=== PATIENT | female | born 1945 | race American Indian/Alaskan Native ===

== ENCOUNTER 2017-03-17 13:32 | Emergency (ER) | payer MEDICARE ==
[2017-03-17 13:56] VITALS: TEMP 98
--- NOTE | 2017-03-17 14:13 | C.PDOC ---
Time Seen by Provider: 03/17/17 14:07 Chief Complaint (Nursing): High Blood Pressure Past Medical History Vital Signs: Last Vital Signs Temp 98.0 F 03/17/17 13:45 Pulse 53 L 03/17/17 13:45 Resp 18 03/17/17 13:45 BP 203/77 H 03/17/17 13:45 Pulse Ox 98 03/17/17 13:45 - Medical History PMH: Anemia, Bronchitis (seasonal ), Cardia Arrhythmia (atrial fibrillation), HTN Denies: Chronic Kidney Disease - Social History Hx Alcohol Use: No Hx Substance Use: No ED Course And Treatment O2 Sat by Pulse Oximetry: 98 Disposition - Disposition
[2017-03-17] MEDS ORDERED: Labetalol 25mg/5ml Syringe IVP STA (14:15)
--- NOTE | 2017-03-17 14:15 | C.PDOC ---
History Of Present Illness 71 year old female, with past medical history of hypertension, presents to the ED via BLS for evaluation of elevated blood pressure associated with headache, nausea, and vomiting since this morning. Patient was found to have blood pressure of 230/101 and heart rate of 60bpm while en route to ED. Patient notes she has been compliant with her hypertension medications, but notes such headaches are normally associated with elevations in her blood pressure ( baseline pressure is around 150/90). Patient reports she took Motrin at around 0700 without significant relief. She denies fever, chills, vision change, dizziness, chest pain, abdominal pain, or extremity numbness/weakness. Time Seen by Provider: 03/17/17 14:07 Chief Complaint (Nursing): High Blood Pressure History Per: Patient History/Exam Limitations: no limitations Onset/Duration Of Symptoms: Hrs Current Symptoms Are (Timing): Still Present Associated Symptoms: Headache. denies: Chest Pain, Blurred Vision, Focal Weakness Exacerbating Factor(s): Pos: None Neg: Recently Missed Doses Of Medication, Recent Change In Medication Additional History Per: Patient Past Medical History Reviewed: Historical Data, Nursing Documentation, Vital Signs Vital Signs: Last Vital Signs Temp 98.0 F 03/17/17 13:45 Pulse 52 L 03/17/17 14:35 Resp 20 03/17/17 14:35 BP 175/82 H 03/17/17 14:35 Pulse Ox 98 03/17/17 14:44 - Medical History PMH: Anemia, Bronchitis (seasonal ), Cardia Arrhythmia (atrial fibrillation), HTN Surgical History: No Surg Hx Family History: States: Unknown Family Hx - Social History Hx Alcohol Use: No Hx Substance Use: No Review Of Systems Constitutional: Negative for: Fever, Chills Eyes: Negative for: Vision Change Cardiovascular: Negative for: Chest Pain Gastrointestinal: Positive for: Nausea, Vomiting. Negative for: Abdominal Pain , Diarrhea, Constipation Neurological: Positive for: Headache. Negative for: Weakness, Numbness, Dizziness Physical Exam - Physical Exam Appears: Non-toxic, No Acute Distress, Other (actively vomiting (non-bloody, non -bilious)) Skin: Normal Color, Warm, Dry Head: Atraumatic, Normacephalic Eye(s): bilateral: Normal Inspection Oral Mucosa: Moist Neck: Supple Chest: Symmetrical, No Deformity, No Tenderness Cardiovascular: Rhythm Regular, No Murmur Respiratory: Normal Breath Sounds, No Rales, No Rhonchi, No Wheezing Gastrointestinal/Abdominal: Soft, No Tenderness, No Guarding, No Rebound Extremity: Normal ROM, Capillary Refill (less than 2 seconds ) Neurological/Psych: Oriented x3, Normal Speech, Normal Cognition Gait: Steady ED Course And Treatment - Laboratory Results Result Diagrams: 03/17/17 14:35 O2 Sat by Pulse Oximetry: 98 (on RA) Pulse Ox Interpretation: Normal Progress Note: CT Head, EKG, Bloodwork ordered and reviewed. Trandate IVP and Zofran IVP administered. Disposition - Disposition Forms: [employer] (Croatian) - Scribe Statement The provider has reviewed the documentation as recorded by the Scribe (Poppy Kamara) Provider Attestation: All medical record entries made by the Scribe were at my direction and personally dictated by me. I have reviewed the chart and agree that the record accurately reflects my personal performance of the history, physical exam, medical decision making, and the department course for this patient. I have also personally directed, reviewed, and agree with the discharge instructions and disposition.
--- NOTE | 2017-03-17 14:17 | C.PDOC ---
History Of Present Illness 71 Y/O FEMALE, PMHx OF HTN, BROUGHT IN BY EMS WITH C/O HEADACHE ASSOCIATED WITH NAUSEA AND VOMITING SINCE THIS MORNING. PATIENT ALSO REPORTS ELEVATED BLOOD PRESSURE, AND STATES SHE HAS HAD SIMILAR SYMPTOMS IN THE PAST WHEN BP IS HIGH. PT NOTES SHE TOOK MOTRIN THIS MORNING AT 0700 WITH NO RELIEF; ALSO REPORTS TAKING HER REGULAR BP MEDICATION THIS MORNING. OTHERWISE DENIES FEVER, VISUAL CHANGES, CHEST PAIN, PALPITATIONS, SOB, ABDOMINAL PAIN, DIARRHEA, NEW EXTREMITY WEAKNESS OR NUMBNESS. PT ALSO C/O ASSOCIATED DECREASED APPETITE AND GENERALIZED WEAKNESS OVER LAST FEW DAYS. STATES BP TYPICALLY 150-60/80-90. Time Seen by Provider: 03/17/17 14:07 Chief Complaint (Nursing): High Blood Pressure History Per: Patient History/Exam Limitations: no limitations Onset/Duration Of Symptoms: Days Current Symptoms Are (Timing): Still Present Associated Symptoms: Headache. denies: Chest Pain, Dyspnea, Dizziness, Blurred Vision, Focal Weakness Recent travel outside of the [place]: No Past Medical History Reviewed: Historical Data, Nursing Documentation, Vital Signs Vital Signs: Last Vital Signs Temp 98.0 F 03/17/17 13:45 Pulse 74 03/17/17 15:43 Resp 20 03/17/17 15:43 BP 158/66 H 03/17/17 15:43 Pulse Ox 99 03/17/17 15:43 - Medical History PMH: Anemia, Bronchitis (seasonal ), Cardia Arrhythmia (atrial fibrillation), HTN Family History: States: Unknown Family Hx - Social History Hx Alcohol Use: No Hx Substance Use: No Review Of Systems Except As Marked, All Systems Reviewed And Found Negative. Constitutional: Positive for: Weakness. Negative for: Fever, Chills Cardiovascular: Negative for: Chest Pain, Palpitations Respiratory: Negative for: Cough, Shortness of Breath, Wheezing Gastrointestinal: Positive for: Nausea, Vomiting. Negative for: Abdominal Pain , Diarrhea Skin: Negative for: Rash Neurological: Positive for: Headache. Negative for: Weakness, Numbness, Dizziness Physical Exam - Physical Exam Appears: Non-toxic, Other (UNCOMFORTABLE, ACTIVELY VOMITING - NONBLOODY, NONBILIOUS. BP AT TIME OF EVALUATION: 175/82) Skin: Normal Color, Warm, Dry Head: Atraumatic, Normacephalic Oral Mucosa: Moist Chest: Symmetrical Cardiovascular: Rhythm Regular Respiratory: Normal Breath Sounds, No Accessory Muscle Use, No Rales, No Rhonchi , No Wheezing Gastrointestinal/Abdominal: Soft, No Tenderness, No Distention, No Guarding, No Rebound, Other (OBESE) Back: Normal Inspection Extremity: Normal ROM, Capillary Refill (< 2 SEC.) Neurological/Psych: Oriented x3, Normal Speech, Normal Cognition ED Course And Treatment - Laboratory Results Result Diagrams: 03/17/17 14:35 03/17/17 14:35 O2 Sat by Pulse Oximetry: 98 (RA) Pulse Ox Interpretation: Normal Progress - Re-Evaluation Re-evaluation Note: 03/17/17 14:14 CT HEAD, EKG, BLOODWORK ORDERED. TREATED WITH LABETALOL AND ZOFRAN. 03/17/17 15:44 d/w dr hunter PMD: HO UNCONTROLL HTN, KNOWN NONCOMPLIANT. SEEN @ [facility] [place] [facility] [place], ELEVATED HTN. HO EATING HIGH SALT DIET. VALSARTAN 320 QD, HCTZ 25 QD, ISOSORBIDE MONONITRATE 30. PT EVALUATED AT HER HOUSE BY PMD TODAY. AWARE OF ER FINDINGS, AGREES W DC PLAN PT APPEARS COMFORTABLE, SX RESOLVED. ADVISED NEED TO TAKE MEDS PRESCRIBED. FU PMD - Data Reviewed Data Reviewed: Lab, Diagnostic imaging - Continuity of Care Discussed patient case with:: Patient, PMD Disposition Counseled Patient/Family Regarding: Studies Performed, Diagnosis, Need For Followup - Disposition Referrals: YOUR,PMD [Other] Disposition: HOME/ ROUTINE Disposition Time: 15:57 Condition: IMPROVED Instructions: Hypertensive Crisis (ED) Forms: [facility] (Pashto) - Clinical Impression Clinical Impression: Hypertensive urgency, Noncompliance with medications, Headache, Vomiting - Scribe Statement The provider has reviewed the documentation as recorded by the Scribe SM All medical record entries made by the Scribe were at my direction and personally dictated by me. I have reviewed the chart and agree that the record accurately reflects my personal performance of the history, physical exam, medical decision making, and the department course for this patient. I have also personally directed, reviewed, and agree with the discharge instructions and disposition.
[2017-03-17] MEDS ORDERED: Labetalol 25mg/5ml Syringe ONE (14:24)
[2017-03-17 14:39] VITALS: RESP 20
[2017-03-17 14:39] LABS: BASO # 0.1 K/uL (0.0-0.2); BASO % 0.7 % (0.0-2.0); EOS % 0.3 % (0.0-4.0); HEMATOCRIT 38.1 % (34.0-47.0); LYMPH # 1.1 K/uL (1.0-4.3); LYMPH % 10.2 % (20.0-40.0); MEAN CELL VOLUME 79.9 fL (81.0-99.0); MEAN CORPUSCULAR HEMOGLOBIN 26.9 pg (27.0-31.0); MEAN CORPUSCULAR HGB CONC 33.7 g/dL (33.0-37.0); MEAN PLATELET VOLUME 8.7 fL (7.2-11.7); MONO # 0.6 K/uL (0.0-0.8); RED CELL DISTRIBUTION WIDTH 14.1 % (11.5-14.5); WHITE BLOOD COUNT 10.6 K/uL (4.8-10.8)
[2017-03-17 14:49] LABS: CHLORIDE 91 mmol/L (98-107)
[2017-03-17 14:50] LABS: POTASSIUM 3.1 mmol/L (3.6-5.2); SODIUM 129 mmol/L (132-148)
[2017-03-17 14:52] LABS: ALB/GLOB RATIO 1.1 (1.0-2.1); CARBON DIOXIDE 24 mmol/L (22-30); GFR AFRICAN-AMERICAN > 60
[2017-03-17 14:53] LABS: ALKALINE PHOSPHATASE 96 U/L (38-126); ALT/SGPT 17 U/L (9-52); AST/SGOT 21 U/L (14-36); BLOOD UREA NITROGEN 11 mg/dL (7-17); CALCIUM 9.9 mg/dl (8.6-10.4); GLUCOSE,RANDOM 129 mg/dL (65-105)
--- NOTE | 2017-03-17 15:32 | CT ---
PROCEDURE: CT HEAD WITHOUT CONTRAST. HISTORY: Headache COMPARISON: None available. TECHNIQUE: Axial computed tomography images were obtained through the head/brain without intravenous contrast. Radiation dose: Total exam DLP = 870.66 MGy-cm. This CT exam was performed using one or more of the following dose reduction techniques: Automated exposure control, adjustment of the mA and/or kV according to patient size, and/or use of iterative reconstruction technique. FINDINGS: HEMORRHAGE: No intracranial hemorrhage. BRAIN: No mass effect or edema. No atrophy or chronic microvascular ischemic changes.Please note that MRI with diffusion imaging is more sensitive in the detection of acute ischemic event. VENTRICLES: No hydrocephalus. CALVARIUM: Unremarkable. PARANASAL SINUSES: Unremarkable as visualized. No significant inflammatory changes. MASTOID AIR CELLS: Unremarkable as visualized. No inflammatory changes. OTHER FINDINGS: 5 x 1.2 cm fat-density soft tissue lesion, right scalp, presumably lipoma IMPRESSION: Right scalp fat density soft tissue lesion consistent with a lipoma. No acute intracranial pathology identified.
[2017-03-17 15:44] VITALS: BP 158/66; PULSE 74
[2017-03-17 15:57] VITALS: O2SAT 98
--- NOTE | 2017-03-19 10:50 | CARD ---
APPROVED REPORT EKG Measurement Heart [id number] <Conclusion> Sinus bradycardia with 1st degree AV block Otherwise normal ECG
== END 2017-03-17 16:10 | disposition home or self-care (01) ==
LOC: C.ER 13:32
DX: I16.0 Hypertensive urgency (principal); Z91.14 Patient's other noncompliance with medication regimen; R51 Headache; R11.10 Vomiting, unspecified
CPT/HCPCS: 70450; 80053; 85025; 93005; 96374; 96375; 99284; J1885; J2270; J2405

== ENCOUNTER 2017-03-20 16:03 | Inpatient (IN) | payer MEDICARE ==
[2017-03-20] MEDS ORDERED: Lactated Ringer's 1,000 ML IVB ONE (16:41)
--- NOTE | 2017-03-20 16:52 | RAD ---
PROCEDURE: CHEST RADIOGRAPH, 1 VIEW. Portable study 16:45. HISTORY: SOB COMPARISON: None available. FINDINGS: LUNGS: Clear. PLEURA: No pneumothorax or pleural fluid seen. CARDIOVASCULAR: No radiographic findings to suggest acute or significant cardiovascular disease. OSSEOUS STRUCTURES: No significant abnormalities. VISUALIZED UPPER ABDOMEN: Normal. OTHER FINDINGS: None. IMPRESSION: No active disease. Please note: No preliminary report/ innterpretation of this examination provided by emergency department personnel.
[2017-03-20 16:58] LABS: BASO # 0.1 K/uL (0.0-0.2); BASO % 1.1 % (0.0-2.0); EOS # 0.1 K/uL (0.0-0.7); EOS % 0.9 % (0.0-4.0); HEMATOCRIT 43.5 % (34.0-47.0); LYMPH # 2.1 K/uL (1.0-4.3); LYMPH % 18.3 % (20.0-40.0); MEAN CELL VOLUME 79.5 fL (81.0-99.0); MEAN CORPUSCULAR HEMOGLOBIN 26.6 pg (27.0-31.0); MEAN CORPUSCULAR HGB CONC 33.4 g/dL (33.0-37.0); MEAN PLATELET VOLUME 9.2 fL (7.2-11.7); MONO # 1.5 K/uL (0.0-0.8); MONO % 12.5 % (0.0-10.0); RED CELL DISTRIBUTION WIDTH 14.5 % (11.5-14.5); WHITE BLOOD COUNT 11.7 K/uL (4.8-10.8)
[2017-03-20 17:30] LABS: POTASSIUM 3.2 mmol/L (3.6-5.2)
[2017-03-20 17:33] LABS: ALB/GLOB RATIO 1.1 (1.0-2.1); BILIRUBIN,TOTAL 0.8 mg/dL (0.2-1.3); TOTAL PROTEIN 7.9 g/dL (6.3-8.3)
[2017-03-20 17:34] LABS: MAGNESIUM 1.8 mg/dL (1.6-2.3)
[2017-03-20 17:44] LABS: TROPONIN I 0.07 ng/mL (0.00-0.120)
--- NOTE | 2017-03-20 18:20 | C.PDOC ---
History Of Present Illness Pt was found by EMS to be hypotensive and tachycardic. Time Seen by Provider: 03/20/17 16:22 Chief Complaint (Nursing): Dizziness/Lightheaded History Per: Patient, EMS Onset/Duration Of Symptoms: Hrs (today) Current Symptoms Are (Timing): Still Present Associated Symptoms Preceding Syncopal Episode: Other (SOB) Seizure Or Post-ictal Symptoms: None Fall Associated With With Symptoms: No Severity: Moderate Additional History Per: Prior Records - Symptoms Of CVA Recent Head Trauma: No Past Medical History Reviewed: Historical Data, Nursing Documentation, Vital Signs Vital Signs: Last Vital Signs Temp 97.2 F L 03/20/17 16:29 Pulse 92 H 03/20/17 17:45 Resp 18 03/20/17 17:45 BP 127/71 03/20/17 17:45 Pulse Ox 99 03/20/17 17:45 - Medical History PMH: Anemia, Bronchitis (seasonal ), Cardia Arrhythmia (atrial fibrillation), HTN Family History: States: Unknown Family Hx - Social History Hx Alcohol Use: No Hx Substance Use: No Review Of Systems Except As Marked, All Systems Reviewed And Found Negative. Constitutional: Negative for: Fever Cardiovascular: Positive for: Palpitations, Light Headedness. Negative for: Chest Pain Respiratory: Positive for: Shortness of Breath. Negative for: Hemoptysis Gastrointestinal: Negative for: Vomiting, Diarrhea Musculoskeletal: Negative for: Neck Pain Skin: Negative for: Rash Neurological: Positive for: Headache. Negative for: Weakness, Numbness Physical Exam - Physical Exam Appears: In Acute Distress (mild) Skin: Diaphoretic Head: Atraumatic, Normacephalic Eye(s): bilateral: PERRL, EOMI Neck: Normal ROM, Supple Cardiovascular: Rhythm Irregular Respiratory: Normal Breath Sounds, No Accessory Muscle Use Gastrointestinal/Abdominal: Soft, No Tenderness Extremity: Normal ROM, No Calf Tenderness Neurological/Psych: Oriented x3, Normal Motor, Normal Sensation ED Course And Treatment - Laboratory Results Result Diagrams: 03/20/17 16:48 03/20/17 16:48 Lab Interpretation: Abnormal Interpretation Of Abnormal: Worsening of BUN/Cr from 4 days ago. ECG: Interpreted By Me, Viewed By Me ECG Rhythm: Atrial Fibrillation, Nonspecific Changes ECG Interpretation: Abnormal Rate From EC O2 Sat by Pulse Oximetry: 99 Pulse Ox Interpretation: Normal - Radiology CXR: Viewed By Me, Read By Radiologist CXR Interpretation: Yes: No Acute Disease Progress - Interventions Interventions:: Observation, Intravenous fluid, Oxygen - Data Reviewed Data Reviewed: Lab, Diagnostic imaging, EKG, Old records - Patient Status Patient status: Partially improved - Continuity of Care Discussed patient case with:: Patient, ED Nurse, On-call PMD-pt unassigned - Patient Plan Patient Plan: Admission, Telemetry Disposition Discussed With Dr.: Katrin Grant Comment: He accepted pt on his service. Doctor Will See Patient In The: Hospital Counseled Patient/Family Regarding: Studies Performed, Diagnosis - Disposition Disposition: HOSPITALIZED Disposition Time: 18:23 Condition: GUARDED - Clinical Impression Clinical Impression: Transient hypotension, Atrial fibrillation with rapid ventricular response, Dehydration
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
[2017-03-21] MEDS: Enoxaparin 40 mg Syringe SC SCH ×3 (00:18→17:52)
[2017-03-21 00:34] VITALS: RESP 20
[2017-03-21] MEDS: Potassium Chloride 20 MEQ in Sodium Chloride 0.45% 1,000 ML IV SCH ×2 (02:06→23:56)
--- NOTE | 2017-03-21 13:25 | CP.PCM.PN ---
Subjective - Date & Time of Evaluation Date of Evaluation: 03/21/17 Time of Evaluation: 13:24 - Subjective Subjective: CHIEF COMPLAINTS TODAY : NO SP. COMPLAINTS ROS. HEENT : N. Resp : No cough, wheezing ,pleuritic CP ,or hemoptysis Cardio : No anginal CP, PND, orthopnea, palpitation GI : No abd.pain, n/v ,diarrhea or GI bleeding . 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 Musculoskel : No joint swelling , Derm : No rash Psych : Normal affect. Ext : No swelling ,calf pain PE. Pt. is alert awake in no distress. V.S As noted in the chart Head ,ear nose,throat and eyes : Normal. Neck : Supple with normal carotids. Lungs: Clear air entry. Heart : S1 & S2 normal with S4. No murmur. Abd : Soft non tender with normal bowel sounds. Neuro : Moves all ext. with no localized deficit. Ext : No edema with intact pulses.Non tender calves Derm : No rashes or decubitus ulcer. LABS/RADIOLOGY: ALL TNI ARE POS ASSESSMENT/PLAN : CARDIAC W/P CHECK BNP Objective - Vital Signs/Intake and Output Vital Signs (last 24 hours): Temp Pulse Resp BP Pulse Ox 97.7 F 98 H 20 130/73 98 03/21/17 07:35 03/21/17 07:40 03/21/17 07:35 03/21/17 07:35 03/21/17 07:35 - Medications Medications: Current Medications Enoxaparin Sodium (Lovenox) 40 mg SC BID [facility] Last Admin: 03/21/17 09:20 Dose: 40 mg Potassium Chloride 20 meq/ (Sodium Chloride) 1,010 mls @ 100 mls/hr IV .Q10H6M [facility] Last Admin: 03/21/17 02:06 Dose: 100 mls/hr Losartan Potassium (Cozaar) 100 mg PO DAILY [facility] Last Admin: 03/21/17 09:20 Dose: 100 mg Pneumococcal Polyvalent Vaccine (Pneumovax 23 Vaccine) 0.5 ml IM .ONCE ONE Stop: 03/23/17 14:01 - Labs Labs: 03/20/17 16:48 03/20/17 16:48 PT 11.0 SECONDS (9.7-12.2) 03/20/17 16:48 INR 1.0 03/20/17 16:48 APTT 28 SECONDS (21-34) 03/20/17 16:48
[2017-03-21 14:21] LABS: CHLORIDE 92 mmol/L (98-107); POTASSIUM 3.3 mmol/L (3.6-5.2); SODIUM 131 mmol/L (132-148)
[2017-03-21 14:23] LABS: GFR AFRICAN-AMERICAN > 60
[2017-03-21 14:24] LABS: ALB/GLOB RATIO 1.2 (1.0-2.1); ALKALINE PHOSPHATASE 78 U/L (38-126); ALT/SGPT 23 U/L (9-52); AST/SGOT 27 U/L (14-36); BILIRUBIN,TOTAL 1.1 mg/dL (0.2-1.3); BLOOD UREA NITROGEN 19 mg/dL (7-17); CALCIUM 9.5 mg/dl (8.6-10.4); CARBON DIOXIDE 28 mmol/L (22-30); GLUCOSE,RANDOM 116 mg/dL (65-105); TOTAL PROTEIN 7.2 g/dL (6.3-8.3)
--- NOTE | 2017-03-21 21:36 | CARD ---
APPROVED REPORT EKG Measurement Heart [id number] <Conclusion> Atrial fibrillation with rapid ventricular response ST & T wave abnormality, consider inferior ischemia Abnormal ECG
[2017-03-22 07:35] LABS: CHLORIDE 96 mmol/L (98-107)
[2017-03-22 07:36] LABS: POTASSIUM 3.6 mmol/L (3.6-5.2); SODIUM 134 mmol/L (132-148)
[2017-03-22 07:38] LABS: CARBON DIOXIDE 25 mmol/L (22-30); GFR AFRICAN-AMERICAN > 60
[2017-03-22 07:39] LABS: ALB/GLOB RATIO 1.1 (1.0-2.1); ALKALINE PHOSPHATASE 80 U/L (38-126); ALT/SGPT 20 U/L (9-52); AST/SGOT 19 U/L (14-36); BLOOD UREA NITROGEN 14 mg/dL (7-17); CALCIUM 9.5 mg/dl (8.6-10.4); GLUCOSE,RANDOM 100 mg/dL (65-105); TOTAL PROTEIN 7.4 g/dL (6.3-8.3)
[2017-03-22] MEDS: Potassium Chloride 20 MEQ in Sodium Chloride 0.45% 1,000 ML IV SCH ×3 (09:00→18:10)
[2017-03-22] MEDS: Enoxaparin 40 mg Syringe SC SCH ×2 (09:56→18:10)
--- NOTE | 2017-03-22 13:49 | CP.PCM.PN ---
Subjective - Date & Time of Evaluation Date of Evaluation: 03/22/17 Time of Evaluation: 13:48 - Subjective Subjective: CHIEF COMPLAINTS TODAY : FATIGUE AND TIRED ROS. HEENT : N. Resp : No cough, wheezing ,pleuritic CP ,or hemoptysis Cardio : No anginal CP, PND, orthopnea, palpitation GI : No abd.pain, n/v ,diarrhea or GI bleeding . 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 Musculoskel : No joint swelling , Derm : No rash Psych : Normal affect. Ext : No swelling ,calf pain PE. Pt. is alert awake in no distress. V.S As noted in the chart Head ,ear nose,throat and eyes : Normal. Neck : Supple with normal carotids. Lungs: Clear air entry. Heart : S1 & S2 normal with S4. No murmur. Abd : Soft non tender with normal bowel sounds. Neuro : Moves all ext. with no localized deficit. Ext : No edema with intact pulses.Non tender calves Derm : No rashes or decubitus ulcer. LABS/RADIOLOGY: ALL TNI ARE POS ASSESSMENT/PLAN : CHECK ECHO WILL D/W PT FOR CARDIAC CATH Objective - Vital Signs/Intake and Output Vital Signs (last 24 hours): Temp Pulse Resp BP Pulse Ox 97.4 F L 71 20 151/94 H 97 03/22/17 08:18 03/22/17 08:18 03/22/17 08:18 03/22/17 08:18 03/22/17 08:18 Intake and Output: 03/22/17 03/22/17 11:59 23:59 Intake Total 950 Balance 950 - Medications Medications: Current Medications Enoxaparin Sodium (Lovenox) 40 mg SC BID [facility] Last Admin: 03/22/17 09:56 Dose: 40 mg Potassium Chloride 20 meq/ (Sodium Chloride) 1,010 mls @ 100 mls/hr IV .Q10H6M [facility] Last Admin: 03/22/17 12:26 Dose: Not Given Losartan Potassium (Cozaar) 100 mg PO DAILY [facility] Last Admin: 03/22/17 09:56 Dose: 100 mg Pneumococcal Polyvalent Vaccine (Pneumovax 23 Vaccine) 0.5 ml IM .ONCE ONE Stop: 03/23/17 14:01 Propranolol HCl (Inderal) 10 mg PO Q6H [facility] Last Admin: 03/22/17 08:00 Dose: 10 mg - Labs Labs: 03/20/17 16:48 03/22/17 07:10 PT 11.0 SECONDS (9.7-12.2) 03/20/17 16:48 INR 1.0 03/20/17 16:48 APTT 28 SECONDS (21-34) 03/20/17 16:48
--- NOTE | 2017-03-22 16:30 | CP.PCM.PN ---
Subjective - Date & Time of Evaluation Date of Evaluation: 03/22/17 Time of Evaluation: 16:30 - Subjective Subjective: pt seen by dr. alvarez during rounds. npo after light breakfast tomorrow ordered and per dr. alvarez pt will have card cath done tomorrow afternoon around 3pm. no further orders. Objective - Vital Signs/Intake and Output Vital Signs (last 24 hours): Temp Pulse Resp BP Pulse Ox 97.4 F L 71 20 151/94 H 97 03/22/17 08:18 03/22/17 08:18 03/22/17 08:18 03/22/17 08:18 03/22/17 08:18 Intake and Output: 03/22/17 03/22/17 06:59 18:59 Intake Total 2100 Balance 2100 - Medications Medications: Current Medications Enoxaparin Sodium (Lovenox) 40 mg SC BID [facility] Last Admin: 03/22/17 09:56 Dose: 40 mg Potassium Chloride 20 meq/ (Sodium Chloride) 1,010 mls @ 100 mls/hr IV .Q10H6M [facility] Last Admin: 03/22/17 12:26 Dose: Not Given Losartan Potassium (Cozaar) 100 mg PO DAILY [facility] Last Admin: 03/22/17 09:56 Dose: 100 mg Pneumococcal Polyvalent Vaccine (Pneumovax 23 Vaccine) 0.5 ml IM .ONCE ONE Stop: 03/23/17 14:01 Propranolol HCl (Inderal) 10 mg PO Q6H [facility] Last Admin: 03/22/17 13:50 Dose: 10 mg - Labs Labs: 03/20/17 16:48 03/22/17 07:10 PT 11.0 SECONDS (9.7-12.2) 03/20/17 16:48 INR 1.0 03/20/17 16:48 APTT 28 SECONDS (21-34) 03/20/17 16:48
--- NOTE | 2017-03-22 19:41 | CARD ---
APPROVED REPORT EXAM: Two-dimensional and M-mode echocardiogram with Doppler and color Doppler. Other Information Quality : GoodRhythm : NSR INDICATION Atrial Fibrillation Cardiac Disease: CAD RISK FACTORS Hypertension M-Mode DIMENSIONS RVDd1.91 (2.1-3.2cm)Left Atrium (MM)3.54 (2.5-4.0cm) IVSd1.67 (0.7-1.1cm)Aortic Root2.92 (2.2-3.7cm) LVDd3.61 (4.0-5.6cm)Aortic Cusp Exc.1.84 (1.5-2.0cm) PWd1.67 (0.7-1.1cm)FS (%) 23 % LVDs2.78 (2.0-3.8cm)LVEF (%)55 (>50%) Aortic Valve AoV Peak Yqjnwfwh968.5cm/Elizabeth Peak GR.8mmHg Mitral Valve MV E Emhmqcgm79.4cm/sMV A Rofsbpso28.5cm/sE/A ratio2.1 TDI E/Lateral E'0.0E/Medial E'0.0 Tricuspid Valve TR Peak Ighaxign095dv/sTR Peak Gr.[id number] LEFT VENTRICLE The left ventricle is normal size. There is moderate concentric left ventricular hypertrophy. Left ventricle systolic function is borderline. The Ejection Fraction is 50-55%. There is normal LV segmental wall motion. The left ventricular diastolic function is normal. RIGHT VENTRICLE The right ventricle is normal size. There is normal right ventricular wall thickness. The right ventricular systolic function is normal. ATRIA The left atrium size is normal. The right atrium size is normal. The interatrial septum is intact with no evidence for an atrial septal defect. AORTIC VALVE The aortic valve is normal in structure. No aortic regurgitation is present. There is no aortic valvular stenosis. MITRAL VALVE The mitral valve is normal in structure. There is no evidence of mitral valve prolapse. There is no mitral valve stenosis. There is no mitral valve regurgitation noted. TRICUSPID VALVE The tricuspid valve is normal in structure. There is trace tricuspid regurgitation. Right ventricular systolic pressure is estimated at less than 30 mmHg. There is no pulmonary hypertension. PULMONIC VALVE The pulmonic valve is not well visualized. There is no pulmonic valvular regurgitation. GREAT VESSELS The aortic root is normal in size. PERICARDIAL EFFUSION There is no significant pericardial effusion. <Conclusion> Left ventricle systolic function is borderline. The Ejection Fraction is 50-55%. Hypertensive heart disease. No aortic regurgitation is present. There is no mitral valve regurgitation noted. There is trace tricuspid regurgitation. There is no pulmonary hypertension. There is no pulmonic valvular regurgitation.
[2017-03-23] MEDS: Potassium Chloride 20 MEQ in Sodium Chloride 0.45% 1,000 ML IV SCH (04:00)
[2017-03-23 08:31] VITALS: BP 140/75; PULSE 56; TEMP 97.9; O2SAT 98
[2017-03-23] MEDS: Enoxaparin 40 mg Syringe SC SCH (10:00)
--- NOTE | 2017-03-23 13:25 | CP.PCM.PN ---
Subjective - Date & Time of Evaluation Date of Evaluation: 03/23/17 Time of Evaluation: 13:23 - Subjective Subjective: FOR CARDIAC CATH TODAY PT HAD CARDIAC CATH FEW YEARS AGO WAS TOLD NORMAL PT. IS FULLY AWARE OF THE PROCEDURE AND RISKS PT HAS AGREED FOR CATH Objective - Vital Signs/Intake and Output Vital Signs (last 24 hours): Temp Pulse Resp BP Pulse Ox 97.9 F 56 L 20 140/75 98 03/23/17 08:30 03/23/17 08:30 03/23/17 08:30 03/23/17 08:30 03/23/17 08:30 - Medications Medications: Current Medications Enoxaparin Sodium (Lovenox) 40 mg SC BID [facility] Last Admin: 03/23/17 10:00 Dose: Not Given Potassium Chloride 20 meq/ (Sodium Chloride) 1,010 mls @ 100 mls/hr IV .Q10H6M [facility] Last Admin: 03/23/17 04:00 Dose: 100 mls/hr Losartan Potassium (Cozaar) 100 mg PO DAILY [facility] Last Admin: 03/23/17 09:00 Dose: 100 mg Pneumococcal Polyvalent Vaccine (Pneumovax 23 Vaccine) 0.5 ml IM .ONCE ONE Stop: 03/23/17 14:01 Propranolol HCl (Inderal) 10 mg PO Q6H [facility] Last Admin: 03/23/17 08:10 Dose: 10 mg - Labs Labs: 03/20/17 16:48 03/22/17 07:10 PT 11.0 SECONDS (9.7-12.2) 03/20/17 16:48 INR 1.0 03/20/17 16:48 APTT 28 SECONDS (21-34) 03/20/17 16:48
[2017-03-23] MEDS ORDERED: Pneumococcal 23-Valent Vaccine IM ONE (14:00)
[2017-03-23] MEDS ORDERED: Influenza Vaccine 60 mcg/0.5 mL SYR (4YR UP) IM ONE (14:00)
--- NOTE | 2017-03-23 22:57 | CARD ---
APPROVED REPORT EKG Measurement Heart [id number] <Conclusion> Atrial fibrillation ST & T wave abnormality, consider inferior ischemia Prolonged QT Abnormal ECG
--- NOTE | 2017-04-01 14:12 | CP.PCM.DIS ---
Provider - Provider Date of Admission: 03/20/17 18:24 Attending physician: Katrin Grant MD Time Spent in preparation of Discharge (in minutes): 330 Hospital Course - Lab Results Lab Results: Most Recent Lab Values WBC 11.7 K/uL (4.8-10.8) H 03/20/17 16:48 RBC 5.47 Mil/uL (3.80-5.20) H 03/20/17 16:48 Hgb 14.5 g/dL (11.0-16.0) 03/20/17 16:48 Hct 43.5 % (34.0-47.0) 03/20/17 16:48 MCV 79.5 fL (81.0-99.0) L 03/20/17 16:48 MCH 26.6 pg (27.0-31.0) L 03/20/17 16:48 MCHC 33.4 g/dL (33.0-37.0) 03/20/17 16:48 RDW 14.5 % (11.5-14.5) 03/20/17 16:48 Plt Count 320 K/uL (130-400) 03/20/17 16:48 MPV 9.2 fL (7.2-11.7) 03/20/17 16:48 Neut % (Auto) 67.2 % (50.0-75.0) 03/20/17 16:48 Lymph % (Auto) 18.3 % (20.0-40.0) L 03/20/17 16:48 Ocean % (Auto) 12.5 % (0.0-10.0) H 03/20/17 16:48 Eos % (Auto) 0.9 % (0.0-4.0) 03/20/17 16:48 Baso % (Auto) 1.1 % (0.0-2.0) 03/20/17 16:48 Neut # 7.9 K/uL (1.8-7.0) H 03/20/17 16:48 Lymph # 2.1 K/uL (1.0-4.3) 03/20/17 16:48 Ocean # 1.5 K/uL (0.0-0.8) H 03/20/17 16:48 Eos # 0.1 K/uL (0.0-0.7) 03/20/17 16:48 Baso # 0.1 K/uL (0.0-0.2) 03/20/17 16:48 PT 11.0 SECONDS (9.7-12.2) 03/20/17 16:48 INR 1.0 03/20/17 16:48 APTT 28 SECONDS (21-34) 03/20/17 16:48 Sodium 134 mmol/L (132-148) 03/22/17 07:10 Potassium 3.6 mmol/L (3.6-5.2) 03/22/17 07:10 Chloride 96 mmol/L (98-107) L 03/22/17 07:10 Carbon Dioxide 25 mmol/L (22-30) 03/22/17 07:10 Anion Gap 17 (10-20) 03/22/17 07:10 BUN 14 mg/dL (7-17) 03/22/17 07:10 Creatinine 0.8 mg/dL (0.7-1.2) 03/22/17 07:10 Est GFR ( Amer) > 60 03/22/17 07:10 Est GFR (Non-Af Amer) > 60 03/22/17 07:10 Random Glucose 100 mg/dL (65-105) 03/22/17 07:10 Calcium 9.5 mg/dl (8.6-10.4) 03/22/17 07:10 Magnesium 1.8 mg/dL (1.6-2.3) 03/20/17 16:48 Total Bilirubin 1.0 mg/dL (0.2-1.3) 03/22/17 07:10 AST 19 U/L (14-36) 03/22/17 07:10 ALT 20 U/L (9-52) 03/22/17 07:10 Alkaline Phosphatase 80 U/L (38-126) 03/22/17 07:10 Total Creatine Kinase 96 U/L (30-135) 03/21/17 16:36 CK-MB (Mass) 2.22 ng/mL (0.0-3.38) 03/21/17 16:36 Troponin I 0.0700 ng/mL (0.00-0.120) 03/20/17 16:48 Troponin I, Quant 1.0300 ng/mL (0.00-0.120) H* 03/21/17 16:36 NT-Pro-B Natriuret Pep 603 pg/mL (0-900) 03/20/17 16:48 Total Protein 7.4 g/dL (6.3-8.3) 03/22/17 07:10 Albumin 3.9 g/dL (3.5-5.0) 03/22/17 07:10 Globulin 3.5 gm/dL (2.2-3.9) 03/22/17 07:10 Albumin/Globulin Ratio 1.1 (1.0-2.1) 03/22/17 07:10 - Hospital Course Hospital Course: ADMITTED AFTER FOUND TO BE HYPOTENSIVE, TACHYCARDIA PT RESPONDED TO IV FLUID HAD A. FIB WITH RVR . PT IS VAGUE ON PRIOR ANTICOAGULATION ECHO SHOWED LV DYSFUNCTION PT WAS TREATED WITH ANTI ANGINAL TREATMENT PT WAS SCHEDUALE FOR CARDIAC CATH INFORMED CONSENT WAS TAKEN ON THE DAY OF CATH I WAS INFORMED PT SIGNED OUT AMA SHE DID NOT TAKE RX FOR HER MEDS I WAS NOT GIVEN A CLEAR EXPLANATION , WHY SHE SIGNED OUT WILL CONTACT PT ON PHONE Discharge Plan - Follow Up Plan Condition: GUARDED Disposition: AGAINST MEDICAL ADVICE
== END 2017-03-23 13:45 | disposition left against medical advice (07) | DRG 316 ==
LOC: C.ER 16:03 → C.9E 18:24 → C.6T 18:24
PROVIDERS: ADMIT Internal Medicine Cardiovascular Disease; ATTEND Internal Medicine Cardiovascular Disease
DX: I95.9 Hypotension, unspecified (principal); I11.9 Hypertensive heart disease without heart failure; I48.91 Unspecified atrial fibrillation; E86.0 Dehydration; D64.9 Anemia, unspecified; Z87.891 Personal history of nicotine dependence